=== PATIENT | female | born 1995 | race Caucasian/White ===

== ENCOUNTER 2017-01-12 11:26 | Emergency (ER) | payer BC, OTHER ==
[2017-01-12 11:36] VITALS: BP 117/80; PULSE 75; RESP 20; TEMP 97
--- NOTE | 2017-01-12 12:08 | ED ---
ENT HPI - General Chief complaint: ENT Stated complaint: Bleeding ear Time Seen by Provider: 01/12/17 11:58 Source: patient, RN notes reviewed Mode of arrival: ambulatory Limitations: no limitations - History of Present Illness Initial comments: 21-year-old female presents to the emergency department with a chief complaint of bleeding from the left ear. Patient states she is to [employer] last night she scratched the inside of the ear canal. Patient states that she did not go that hard she denying. She is fine. Patient states now has bleeding from the ear. Patient states that she has no other symptoms is no pain no fever chills no cough cold runny nose. Patient denies any recent fever, chills, shortness of breath, chest pain, back pain, abdominal pain, nausea vomiting, numbness or tingling, dysuria or hematuria, constipation or diarrhea, headaches or visual changes, or any other current symptoms. - Related Data Previous Rx's Medication Instructions Recorded Fluticasone Nasal [place] [Flonase 1 spray EA NOSTRIL DAILY PRN #1 08/20/16 Nasal Watson] bottle Levofloxacin [Levaquin] 500 mg PO DAILY #7 tab 08/20/16 predniSONE 50 mg PO DAILY #5 tab 08/20/16 Allergies Allergy/AdvReac Type Severity Reaction Status Date / Time erythromycin base Allergy Unknown Verified 01/12/17 11:36 Penicillins Allergy Unknown Verified 01/12/17 11:36 Review of Systems ROS Statement: Those systems with pertinent positive or pertinent negative responses have been documented in the HPI. ROS Other: All systems not noted in ROS Statement are negative. Past Medical History Past Medical History: No Reported History Additional Past Medical History / Comment(s): anorexia History of Any Multi-Drug Resistant Organisms: None Reported Past Surgical History: No Surgical Hx Reported Additional Past Surgical History / Comment(s): anxiety, bipolar, heart arrythmia , anorexia Past Psychological History: Anxiety, Bipolar Smoking Status: Never smoker Past Alcohol Use History: Rare Past Drug Use History: None Reported General Exam Limitations: no limitations General appearance: alert, in no apparent distress Head exam: Present: atraumatic, normocephalic, normal inspection ENT exam: Present: mucous membranes moist, TM's normal bilaterally. Absent: normal external ear exam (Patient does appear to have a small abrasion to the left ear canal.) Neck exam: Present: normal inspection. Absent: tenderness, meningismus, lymphadenopathy Respiratory exam: Present: normal lung sounds bilaterally. Absent: respiratory distress, wheezes, rales, rhonchi, stridor Cardiovascular Exam: Present: regular rate, normal rhythm, normal heart sounds. Absent: systolic murmur, diastolic murmur, rubs, gallop, clicks Back exam: Present: normal inspection Neurological exam: Present: alert, oriented X3, CN II-XII intact. Absent: motor sensory deficit Psychiatric exam: Present: normal affect, normal mood Skin exam: Present: warm, dry, intact, normal color. Absent: rash Course Vital Signs 01/12/17 11:34 Temperature 97 F L Pulse Rate 75 Respiratory 20 Rate Blood Pressure 117/80 O2 Sat by Pulse 98 Oximetry Medical Decision Making - Medical Decision Making 21-year-old female presents for left wrist to be an ear canal abrasion. At this time we discussed care of this. We discussed no Q-tips in the ear. We discussed return parameters and follow-up. Discussed outpatient family's questions fairly clearly understood and agreed with plan all cushions have answered. They will be discharged. Disposition Clinical Impression: Abrasion of left ear canal Disposition: HOME SELF-CARE Condition: Stable Instructions: Abrasion (ED) Additional Instructions: Please use medication as discussed. Please follow up with family doctor if symptoms have not improved over the next two days. Please return to the emergency room if your symptoms increase or worsen or for any other concerns. Referrals: Tadeo Michael MD [STAFF PHYSICIAN] - 1-2 days Time of Disposition: 12:08
== END 2017-01-12 12:21 | disposition home or self-care (01) ==
LOC: EC 11:26
DX: S00.412A Abrasion of left ear, initial encounter (principal); X58.XXXA Exposure to other specified factors, initial encounter; Z79.899 Other long term (current) drug therapy; Z79.52 Long term (current) use of systemic steroids; Z88.0 Allergy status to penicillin; Z88.1 Allergy status to other antibiotic agents
CPT/HCPCS: 99282

== ENCOUNTER 2017-04-27 19:18 | Emergency (ER) | payer BC ==
[2017-04-27 19:45] VITALS: BP 140/77; PULSE 77; RESP 16; TEMP 98.9
[2017-04-27 20:32] LABS: Basophils % (A) 0 %; CH 32.2; CHCM 34.9; Eosinophils # (A) 0.1 k/uL (0-0.7); Eosinophils % (A) 2 %; HCT 38.7 % (34.0-46.0); HDW 2.33; HGB 13.1 gm/dL (11.4-16.0); Luc # (Auto) 0.14; Luc % (Auto) 2; Lymphocytes % (A) 24 %; MCH 31.4 pg (25.0-35.0); MCHC 33.8 g/dL (31.0-37.0); MCV 92.8 fL (80.0-100.0); Mean Platelet Volume 7.2; Monocytes # (A) 0.3 k/uL (0-1.0); Monocytes % (A) 4 %; Neutrophils # (A) 5.9 k/uL (1.3-7.7); Neutrophils % (A) 69 %; RBC 4.16 m/uL (3.80-5.40); RDW 12.7 % (11.5-15.5); WBC 8.5 k/uL (3.8-10.6); WBC (Perox) 8.93
[2017-04-27 20:34] LABS: Amorphous Sediment,Urine Rare /hpf; Appearance,Urine Clear (Clear); Bacteria,Urine Rare /hpf; Bilirubin,Urine Negative (Negative); Glucose,Urine (UA) Negative (Negative); Ketones,Urine Trace (Negative); Leukocyte Esterase,Urine Negative (Negative); Mucus,Urine Rare /hpf; Nitrite,Urine Negative (Negative); Particle Count 2872; Protein,Urine Negative (Negative); RBC,Urine 1 /hpf (0-5); Specific Gravity,Urine 1.015 (1.001-1.035); Squamous Epithelial Cell,Urine 1 /hpf (0-4); UA Billing (MACRO vs. MICRO) MICRO; Urobilinogen,Urine <2.0 mg/dL (<2.0); WBC,Urine 5 /hpf (0-5)
--- NOTE | 2017-04-27 20:52 | US ---
EXAMINATION TYPE: US OB <=14 wks transvag DATE OF EXAM: 04/27/2017 COMPARISON: NONE CLINICAL HISTORY: Cramping, spotting. Irregular cycles EXAM PERFORMED: Transvaginal (TV) and Transabdominal (TA) EXAM MEASUREMENTS: GESTATIONAL AGE / DATING Physician Established: Not established Dates by LMP: ( 5 weeks/4 days) EDC: 12/24/2017 Dates by First Scan: No previous Dates by Current Scan for: No IUP visualized MATERNAL ANATOMY Uterus: 6.5 x 4.0 x 4.6 cm Right Ovary: 3.8 x 2.0 x 1.8 cm Left Ovary: 2.3 x 1.4 x 1.4 cm Post CDS / Adnexa: wnl Presence of free fluid: No Presence of corpus luteal cyst: Yes, right ovary measuring 1.6 x 1.7 x 1.4 cm Presence of subchorionic bleed: No GESTATION / SURVEY IUP: No IUP seen at this time Date of LMP: 03/19/2017 Beta HcG (if available): Not available at time of exam No IUP visualized on this exam IMPRESSION: The uterus is empty. There is an irregular thick-walled cystic area on the right ovary. This is proba mathew ovarian cyst and not a gestational sac. The possibility of early ectopic cannot be enti rely excluded.
--- NOTE | 2017-04-27 21:19 | ED ---
Female Urogenital HPI - General Chief complaint: Vaginal Bleeding Stated complaint: vag bleeding/early Time Seen by Provider: 04/27/17 19:47 Source: patient, RN notes reviewed, old records reviewed Mode of arrival: ambulatory Limitations: no limitations - History of Present Illness Initial comments: This is a 21-year-old female chief complaint of vaginal spotting for approximately one day. Patient reports that she found she was last week. She's been started on vitamins. She does not know exactly L far along she is. Patient states that this is her first . She does not have an PET FEEDER. Patient reports that she has some lower pelvic cramping as well. denies any fever or chills, chest pain, shortness of breath, nausea, vomiting or any other symptoms. She denies any dysuria. She denies any risk resection transmitted infection. - Related Data Home Medications Medication Instructions Recorded Confirmed Pih-Setp-Skwng Acid 1 cap PO DAILY 04/27/17 04/27/17 [-U Capsule (formulary)] Allergies Allergy/AdvReac Type Severity Reaction Status Date / Time erythromycin base AdvReac Nausea & Verified 04/27/17 20:56 Vomiting Penicillins AdvReac Nausea & Verified 04/27/17 20:56 Vomiting Review of Systems ROS Statement: Those systems with pertinent positive or pertinent negative responses have been documented in the HPI. ROS Other: All systems not noted in ROS Statement are negative. Past Medical History Past Medical History: No Reported History Additional Past Medical History / Comment(s): heart murmur, anxiety, bipolar, anorexia History of Any Multi-Drug Resistant Organisms: None Reported Past Surgical History: No Surgical Hx Reported Additional Past Surgical History / Comment(s): anxiety, bipolar, heart arrythmia , anorexia Past Psychological History: Anxiety, Bipolar, Depression Smoking Status: Never smoker Past Alcohol Use History: None Reported Past Drug Use History: None Reported General Exam - General Exam Comments Initial Comments: Well-appearing 21-year-old female. No acute distress. Limitations: no limitations General appearance: alert, in no apparent distress Head exam: Present: atraumatic, normocephalic, normal inspection Eye exam: Present: normal appearance, PERRL, EOMI. Absent: scleral icterus, conjunctival injection, periorbital swelling ENT exam: Present: normal exam, mucous membranes moist Neck exam: Present: normal inspection. Absent: tenderness, meningismus, lymphadenopathy Respiratory exam: Present: normal lung sounds bilaterally. Absent: respiratory distress, wheezes, rales, rhonchi, stridor Cardiovascular Exam: Present: regular rate, normal rhythm, normal heart sounds. Absent: systolic murmur, diastolic murmur, rubs, gallop, clicks GI/Abdominal exam: Present: soft, normal bowel sounds. Absent: distended, tenderness, guarding, rebound, rigid External exam: Present: normal external exam. Absent: erythema, ecchymosis Speculum exam: Present: normal speculum exam, vaginal discharge, vaginal bleeding (Skin vaginal bleeding. Cervical os appears to be closed. No evidence of clotting.). Absent: cervical discharge By manual exam: Present: normal by manual exam. Absent: cervical motion tenderness, adnexal tenderness Extremities exam: Present: normal inspection, full ROM, normal capillary refill. Absent: tenderness, pedal edema, joint swelling, calf tenderness Back exam: Present: normal inspection Neurological exam: Present: alert Psychiatric exam: Present: normal affect, normal mood Skin exam: Present: warm, dry, intact, normal color. Absent: rash Course Vital Signs 04/27/17 19:42 Temperature 98.9 F Pulse Rate 77 Respiratory 16 Rate Blood Pressure 140/77 O2 Sat by Pulse 100 Oximetry Medical Decision Making - Medical Decision Making This is a 21-year-old female chief complaint of vaginal spotting for approximately one day. Patient reports that she found she was last week. She's been started on vitamins. She does not know exactly L far along she is. Patient states that this is her first . She does not have an PET FEEDER. Patient reports that she has some lower pelvic cramping as well. Patient's blood tests is O+. Serum hCG is 234. Patient ultrasound shows no evidence of IUP at this time. Patient had an x-ray are reviewed and negative for any abnormalities. Patient speculum exam shows minor bleeding, no clots. Some vaginal discharge. Cultures were obtained. Patient will be discharged with advice to repeat the blood work in approximately 2 days. Discussed that she needs follow-up with PET FEEDER. Patient agrees to treatment plan and will comply. Return parameters were discussed. - Lab Data Result diagrams: 04/27/17 20:22 Lab Results 04/27/17 04/27/17 04/27/17 Range/Units 20:22 20:22 20:22 WBC 8.5 (3.8-10.6) k/uL RBC 4.16 (3.80-5.40) m/uL Hgb 13.1 (11.4-16.0) gm/dL Hct 38.7 (34.0-46.0) % MCV 92.8 (80.0-100.0) fL MCH 31.4 (25.0-35.0) pg MCHC 33.8 (31.0-37.0) g/dL RDW 12.7 (11.5-15.5) % Plt Count 252 (150-450) k/uL Neutrophils % 69 % Lymphocytes % 24 % Monocytes % 4 % Eosinophils % 2 % Basophils % 0 % Neutrophils # 5.9 (1.3-7.7) k/uL Lymphocytes # 2.0 (1.0-4.8) k/uL Monocytes # 0.3 (0-1.0) k/uL Eosinophils # 0.1 (0-0.7) k/uL Basophils # 0.0 (0-0.2) k/uL HCG, Quant 234.9 mIU/mL Urine Color Urine Appearance (Clear) Urine pH (5.0-8.0) Ur Specific [place] (1.001-1.035) Urine Protein (Negative) Urine Glucose (UA) (Negative) Urine Ketones (Negative) Urine Blood (Negative) Urine Nitrite (Negative) Urine Bilirubin (Negative) Urine Urobilinogen (<2.0) mg/dL Ur Leukocyte Esterase (Negative) Urine RBC (0-5) /hpf Urine WBC (0-5) /hpf Ur Squamous Epith Cells (0-4) /hpf Amorphous Sediment (None) /hpf Urine Bacteria (None) /hpf Urine Mucus (None) /hpf Trichomonas Ag (Rapid) (Negative) Blood Type O Positive Blood Type Recheck No 04/27/17 04/27/17 Range/Units 20:22 21:50 WBC (3.8-10.6) k/uL RBC (3.80-5.40) m/uL Hgb (11.4-16.0) gm/dL Hct (34.0-46.0) % MCV (80.0-100.0) fL MCH (25.0-35.0) pg MCHC (31.0-37.0) g/dL RDW (11.5-15.5) % Plt Count (150-450) k/uL Neutrophils % % Lymphocytes % % Monocytes % % Eosinophils % % Basophils % % Neutrophils # (1.3-7.7) k/uL Lymphocytes # (1.0-4.8) k/uL Monocytes # (0-1.0) k/uL Eosinophils # (0-0.7) k/uL Basophils # (0-0.2) k/uL HCG, Quant mIU/mL Urine Color Light Yellow Urine Appearance Clear (Clear) Urine pH 6.0 (5.0-8.0) Ur Specific [place] 1.015 (1.001-1.035) Urine Protein Negative (Negative) Urine Glucose (UA) Negative (Negative) Urine Ketones Trace H (Negative) Urine Blood Small H (Negative) Urine Nitrite Negative (Negative) Urine Bilirubin Negative (Negative) Urine Urobilinogen <2.0 (<2.0) mg/dL Ur Leukocyte Esterase Negative (Negative) Urine RBC 1 (0-5) /hpf Urine WBC 5 (0-5) /hpf Ur Squamous Epith Cells 1 (0-4) /hpf Amorphous Sediment Rare H (None) /hpf Urine Bacteria Rare H (None) /hpf Urine Mucus Rare H (None) /hpf Trichomonas Ag (Rapid) Negative (Negative) Blood Type Blood Type Recheck Disposition Clinical Impression: Threatened miscarriage in early Disposition: HOME SELF-CARE Condition: Good Instructions: Threatened Miscarriage (ED) Additional Instructions: Patient advised to rest, take Tylenol for pain. Repeat your blood work in 2 days. Follow-up with a mold chipper. Return if there are any alarming signs or symptoms occur. Referrals: None,Stated [Primary Care Provider] - 1-2 days Rico Branch MD [STAFF PHYSICIAN] - 1-2 days Time of Disposition: 21:42
[2017-04-29 12:27] LABS: Chlamydia/GC Source Vaginal
== END 2017-04-27 21:56 | disposition home or self-care (01) ==
LOC: EC 19:18
DX: O20.0 Threatened abortion (principal); Z88.0 Allergy status to penicillin; Z88.1 Allergy status to other antibiotic agents
CPT/HCPCS: 36415; 76801; 76817; 81001; 84702; 85025; 86900; 86901; 87070; 87205; 87491; 87591; 87808; 99284

== ENCOUNTER → 2017-04-29 | Outpatient (CLI) | payer BC | LOC: LABWHC1 07:48 | PROVIDERS: ATTEND Physician Assistant Medical | DX: O20.0 Threatened abortion (principal) | CPT/HCPCS: 36415; 84702 ==

== ENCOUNTER 2017-05-06 22:32 | Emergency (ER) | payer BC, OTHER ==
[2017-05-06 22:47] VITALS: TEMP 99
[2017-05-06] MEDS ORDERED: METOCLOPRAMIDE 5 MG/ML 2 ML VIAL IVP STA (23:31)
[2017-05-06] MEDS ORDERED: SODIUM CHLORIDE 0.9% 1,000 ML IV ONE (23:31)
--- NOTE | 2017-05-06 23:34 | ED ---
General Adult HPI - General Chief complaint: Back Pain/Injury Stated complaint: Migraine/Back Pain Time Seen by Provider: 05/06/17 23:21 Source: patient, RN notes reviewed Mode of arrival: ambulatory Limitations: no limitations - History of Present Illness Initial comments: Patient is a 22-year-old female since emergency room for evaluation of migraine headache. Patient states she has a history of migraines. Patient states been taking Tylenol with no relief of headache. Patient states that is going on for the past 4 hours. Patient is an 8 out of 10 headache. Patient states this feels like her normal migraines. Patient also states she is about 6 weeks . Patient states she was here about 10 days ago for vaginal bleeding. Patient states she is no longer bleeding. Patient states been developing bilateral left lower quadrant and right lower quadrant abdominal cramping. Patient states this was worrying her. Patient is . She also states been nauseous all day but denies any vomiting. Patient denies dizziness. Patient denies chest pain or shortness of breath. Patient denies pain or burning during urination, trouble urinating or blood in urine. Patient states she hasn' t followed up with [employer] yet. - Related Data Home Medications Medication Instructions Recorded Confirmed Fum-Tafw-Nfvnt Acid 1 cap PO DAILY 04/27/17 05/06/17 [-U Capsule (formulary)] Allergies Allergy/AdvReac Type Severity Reaction Status Date / Time erythromycin base AdvReac Nausea & Verified 05/06/17 23:36 Vomiting Penicillins AdvReac Nausea & Verified 05/06/17 23:36 Vomiting Review of Systems ROS Statement: Those systems with pertinent positive or pertinent negative responses have been documented in the HPI. ROS Other: All systems not noted in ROS Statement are negative. Past Medical History Past Medical History: No Reported History Additional Past Medical History / Comment(s): heart murmur, anxiety, bipolar, anorexia History of Any Multi-Drug Resistant Organisms: None Reported Past Surgical History: No Surgical Hx Reported Additional Past Surgical History / Comment(s): anxiety, bipolar, heart arrythmia , anorexia Past Psychological History: Anxiety, Bipolar, Depression Smoking Status: Never smoker Past Alcohol Use History: None Reported Past Drug Use History: None Reported General Exam - General Exam Comments Initial Comments: sitting in exam room, no acute distress. Limitations: no limitations General appearance: alert, in no apparent distress Head exam: Present: atraumatic, normocephalic, normal inspection Eye exam: Present: normal appearance ENT exam: Present: normal exam, mucous membranes moist, TM's normal bilaterally Neck exam: Present: normal inspection Respiratory exam: Present: normal lung sounds bilaterally. Absent: respiratory distress Cardiovascular Exam: Present: regular rate, normal rhythm, normal heart sounds GI/Abdominal exam: Present: soft, normal bowel sounds. Absent: distended, tenderness, guarding, rebound, rigid Extremities exam: Present: normal inspection Back exam: Present: normal inspection Neurological exam: Present: alert, oriented X3, CN II-XII intact, normal gait Psychiatric exam: Present: normal affect, normal mood Skin exam: Present: warm, dry, intact, normal color. Absent: rash Course Vital Signs 05/06/17 05/07/17 22:42 01:36 Temperature 99 F Pulse Rate 97 74 Respiratory 16 18 Rate Blood Pressure 133/67 110/58 O2 Sat by Pulse 100 98 Oximetry Medical Decision Making - Medical Decision Making Patient is a 22-year-old female presents to the emergency room for evaluation of migraine and lower abdominal pain. Patient is about 6 weeks . Serum beta-hCG is still increasing. OB ultrasound: Probable early intrauterine gestational sac with visible yolk sac but no pole at this time. Gestational sac out of range for gestational age estimation. Patient states she is feeling 100% better after fluids and Reglan. Patient would like to be discharged home. Return parameters discussed. Case discussed with Dr. Poole. - Lab Data Result diagrams: 05/06/17 23:41 05/06/17 23:41 Lab Results 05/06/17 05/06/17 05/06/17 Range/Units 23:30 23:41 23:41 WBC 9.4 (3.8-10.6) k/uL RBC 4.19 (3.80-5.40) m/uL Hgb 13.1 (11.4-16.0) gm/dL Hct 38.3 (34.0-46.0) % MCV 91.3 (80.0-100.0) fL MCH 31.3 (25.0-35.0) pg MCHC 34.2 (31.0-37.0) g/dL RDW 12.8 (11.5-15.5) % Plt Count 261 (150-450) k/uL Neutrophils % 65 % Lymphocytes % 27 % Monocytes % 5 % Eosinophils % 2 % Basophils % 0 % Neutrophils # 6.0 (1.3-7.7) k/uL Lymphocytes # 2.5 (1.0-4.8) k/uL Monocytes # 0.4 (0-1.0) k/uL Eosinophils # 0.2 (0-0.7) k/uL Basophils # 0.0 (0-0.2) k/uL Sodium 141 (137-145) mmol/L Potassium 3.7 (3.5-5.1) mmol/L Chloride 105 (98-107) mmol/L Carbon Dioxide 24 (22-30) mmol/L Anion Gap 12 mmol/L BUN 14 (7-17) mg/dL Creatinine 0.80 (0.52-1.04) mg/dL Est GFR (MDRD) Af Amer >60 (>60 ml/min/1.73 sqM) Est GFR (MDRD) Non-Af >60 (>60 ml/min/1.73 sqM) Glucose 88 (74-99) mg/dL Calcium 9.6 (8.4-10.2) mg/dL Total Bilirubin 0.6 (0.2-1.3) mg/dL AST 21 (14-36) U/L ALT 36 (9-52) U/L Alkaline Phosphatase 62 (38-126) U/L Total Protein 7.0 (6.3-8.2) g/dL Albumin 4.3 (3.5-5.0) g/dL HCG, Quant 7685.3 mIU/mL Urine Color Yellow Urine Appearance Cloudy H (Clear) Urine pH 7.0 (5.0-8.0) Ur Specific [place] 1.016 (1.001-1.035) Urine Protein Negative (Negative) Urine Glucose (UA) Negative (Negative) Urine Ketones Negative (Negative) Urine Blood Negative (Negative) Urine Nitrite Negative (Negative) Urine Bilirubin Negative (Negative) Urine Urobilinogen <2.0 (<2.0) mg/dL Ur Leukocyte Esterase Negative (Negative) Urine RBC 2 (0-5) /hpf Urine WBC 4 (0-5) /hpf Ur Squamous Epith Cells 1 (0-4) /hpf Amorphous Sediment Occasional H (None) /hpf Urine Mucus Rare H (None) /hpf - Radiology Data Radiology results: report reviewed, image reviewed Disposition Clinical Impression: Headache, Abdominal pain affecting Disposition: HOME SELF-CARE Condition: Good Instructions: Acute Headache (ED) Additional Instructions: Drink plenty of water. Continue taking Tylenol as needed for pain. Please follow up with primary care provider in 1-2 days. If any new symptom arises or symptoms worsen, return to ER as soon as possible. Referrals: None,Stated [Primary Care Provider] - 1-2 days Time of Disposition: 01:20
[2017-05-06 23:58] LABS: Basophils % (A) 0 %; CH 32.1; CHCM 35.4; Eosinophils # (A) 0.2 k/uL (0-0.7); Eosinophils % (A) 2 %; HCT 38.3 % (34.0-46.0); HDW 2.39; HGB 13.1 gm/dL (11.4-16.0); Luc # (Auto) 0.13; Luc % (Auto) 1; Lymphocytes # (A) 2.5 k/uL (1.0-4.8); Lymphocytes % (A) 27 %; MCH 31.3 pg (25.0-35.0); MCHC 34.2 g/dL (31.0-37.0); MCV 91.3 fL (80.0-100.0); Mean Platelet Volume 7.3; Monocytes # (A) 0.4 k/uL (0-1.0); Monocytes % (A) 5 %; Neutrophils % (A) 65 %; RBC 4.19 m/uL (3.80-5.40); RDW 12.8 % (11.5-15.5); WBC 9.4 k/uL (3.8-10.6); WBC (Perox) 9.55
[2017-05-07 00:04] LABS: Amorphous Sediment,Urine Occasional /hpf; Appearance,Urine Cloudy (Clear); Bilirubin,Urine Negative (Negative); Glucose,Urine (UA) Negative (Negative); Ketones,Urine Negative (Negative); Leukocyte Esterase,Urine Negative (Negative); Mucus,Urine Rare /hpf; Nitrite,Urine Negative (Negative); Particle Count 13057; Protein,Urine Negative (Negative); RBC,Urine 2 /hpf (0-5); Specific Gravity,Urine 1.016 (1.001-1.035); Squamous Epithelial Cell,Urine 1 /hpf (0-4); UA Billing (MACRO vs. MICRO) MICRO; Urobilinogen,Urine <2.0 mg/dL (<2.0); WBC,Urine 4 /hpf (0-5)
[2017-05-07 00:24] LABS: ALT 36 U/L (9-52); AST 21 U/L (14-36); Alkaline Phosphatase 62 U/L (38-126); Anion Gap 12 mmol/L; Blood Urea Nitrogen 14 mg/dL (7-17); Calcium 9.6 mg/dL (8.4-10.2); Carbon Dioxide 24 mmol/L (22-30); Chloride 105 mmol/L (98-107); Glucose 88 mg/dL (74-99); Non-African American GFR(MDRD) >60 (>60 ml/min/1.73 sqM); Potassium 3.7 mmol/L (3.5-5.1); Sodium 141 mmol/L (137-145); Total Bilirubin 0.6 mg/dL (0.2-1.3)
[2017-05-07 00:40] LABS: HCG,Quantitative Serum 7685.3 mIU/mL
--- NOTE | 2017-05-07 01:14 | US ---
Ultrasound First Trimester INDICATION: 22-year-old woman, LMP 03/20/17, presenting with pain. COMPARISON: Pelvic ultrasound 04/27/17 TECHNIQUE: Real-time sonographic evaluation of the female pelvis obtained using grayscale and color flow using transabdominal and endovaginal technique. FINDINGS: Uterus: 7.3 x 4.8 x 5.9 cm Right Ovary: 3.9 x 2.1 x 2.0 cm with 16mm corpus luteum cyst. Left Ovary: 2.7 x 1.9 x 1.6 cm No free fluid or abnormal adnexal mass. Presence of free fluid: No There is an intrauterine gestational sac measuring 8.4 mm, out of range for estimation of gestational age. A yolk sac is seen measuring 2 mm. No pole is visualized and no cardiac activity is detectable at this time. Placental location is not yet distinguishable. IMPRESSION: Probable early intrauterine gestational sac with visible yolk sac but no pole at this time. Gestational sac is out of range for gestational age estimation. Correlation with serial quantitative hCG and short interval follow-up ultrasound is recommended.
[2017-05-07 01:38] VITALS: BP 110/58; PULSE 74; RESP 18
== END 2017-05-07 01:38 | disposition home or self-care (01) ==
LOC: EC 22:32
DX: O99.89 Other specified diseases and conditions complicating pregnancy, childbirth and the puerperium (principal); R10.30 Lower abdominal pain, unspecified; R51 Headache; M54.9 Dorsalgia, unspecified; Z3A.01 Less than 8 weeks gestation of pregnancy; Z79.899 Other long term (current) drug therapy; Z88.0 Allergy status to penicillin; Z88.1 Allergy status to other antibiotic agents; Z86.69 Personal history of other diseases of the nervous system and sense organs
CPT/HCPCS: 99283; 96374; 96361 ×2; 36415; 80053; 85025; 81001; 84702; 76801; 76817; J2765

== ENCOUNTER 2017-06-14 23:40 | Emergency (ER) | payer OTHER ==
[2017-06-14 23:48] VITALS: BP 130/74; PULSE 76; RESP 18; TEMP 97.7
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
== END 2017-06-15 00:15 | disposition home or self-care (01) ==
LOC: EC 23:40
DX: T20.40XA Corrosion of unspecified degree of head, face, and neck, unspecified site, initial encounter (principal); T65.91XA Toxic effect of unspecified substance, accidental (unintentional), initial encounter; Z88.0 Allergy status to penicillin; Z88.1 Allergy status to other antibiotic agents
CPT/HCPCS: 99283

== ENCOUNTER 2017-07-15 11:27 | Emergency (ER) | payer OTHER ==
[2017-07-15] MEDS ORDERED: SODIUM CHLORIDE 0.9% 1,000 ML IV STA ×2 (11:49)
[2017-07-15] MEDS ORDERED: MECLIZINE 12.5 MG TAB PO STA (11:49)
[2017-07-15] MEDS ORDERED: diphenhydrAMINE 50 MG/ML 1 ML VIAL IVP STA (11:49)
[2017-07-15] MEDS ORDERED: METOCLOPRAMIDE 5 MG/ML 2 ML VIAL IVP STA (11:49)
[2017-07-15] MEDS ORDERED: MAG HYDROX/AL HYDROX/SIMETH 30 ML, HYOSCYAMINE ELIXIR 10 ML, CIMETIDINE HCL 300 MG PO STA ×3 (12:02)
--- NOTE | 2017-07-15 12:12 | ED ---
Nausea/Vomiting/Diarrhea HPI - General Chief complaint: Nausea/Vomiting/Diarrhea Stated complaint: NAUSEA, VOMITING Time Seen by Provider: 07/15/17 11:39 Source: patient, RN notes reviewed, old records reviewed Mode of arrival: ambulatory Limitations: no limitations - History of Present Illness Initial comments: This is a 22-year-old female presenting to emergency Department chief complaint of nausea and vomiting for one day. Patient reports it started last night and into today. She states that whenever she tries eat or drink anything it comes right back up. She denies some blood in her vomit today which prompted her to come in. She is currently 15 weeks . Manage his her urgency with Dr. Green. Patient states that she's had no vaginal bleeding or any significant abdominal pain. Patient states that she's had no known fever or chills. Does have a history of sick contacts. - Related Data Home Medications Medication Instructions Recorded Confirmed Wox-Bpfw-Ycibv Acid 1 cap PO DAILY 04/27/17 07/15/17 [-U Capsule (formulary)] Metoclopramide [Reglan] 10 mg PO Q6H PRN 07/15/17 07/15/17 Previous Rx's Medication Instructions Recorded Sucralfate [Carafate] 1 gm PO BID #14 tablet 07/15/17 Allergies Allergy/AdvReac Type Severity Reaction Status Date / Time erythromycin base AdvReac Nausea & Verified 07/15/17 12:00 Vomiting Penicillins AdvReac Nausea & Verified 07/15/17 12:00 Vomiting Review of Systems ROS Statement: Those systems with pertinent positive or pertinent negative responses have been documented in the HPI. ROS Other: All systems not noted in ROS Statement are negative. Past Medical History Past Medical History: No Reported History Additional Past Medical History / Comment(s): heart murmur, anxiety, bipolar, anorexia History of Any Multi-Drug Resistant Organisms: None Reported Past Surgical History: No Surgical Hx Reported Additional Past Surgical History / Comment(s): anxiety, bipolar, heart arrythmia , anorexia Past Psychological History: Anxiety, Bipolar, Depression Smoking Status: Never smoker Past Alcohol Use History: None Reported Past Drug Use History: None Reported General Exam - General Exam Comments Initial Comments: 22-year-old female. No acute distress. Limitations: no limitations General appearance: alert, in no apparent distress Head exam: Present: atraumatic, normocephalic, normal inspection Eye exam: Present: normal appearance, PERRL, EOMI. Absent: scleral icterus, conjunctival injection, periorbital swelling ENT exam: Present: normal exam, mucous membranes moist Neck exam: Present: normal inspection. Absent: tenderness, meningismus, lymphadenopathy Respiratory exam: Present: normal lung sounds bilaterally. Absent: respiratory distress, wheezes, rales, rhonchi, stridor Cardiovascular Exam: Present: regular rate, normal rhythm, normal heart sounds. Absent: systolic murmur, diastolic murmur, rubs, gallop, clicks GI/Abdominal exam: Present: soft, normal bowel sounds. Absent: distended, tenderness, guarding, rebound, rigid Extremities exam: Present: normal inspection, full ROM, normal capillary refill. Absent: tenderness, pedal edema, joint swelling, calf tenderness Back exam: Present: normal inspection Neurological exam: Present: alert, oriented X3, CN II-XII intact Psychiatric exam: Present: normal affect, normal mood Skin exam: Present: warm, dry, intact, normal color. Absent: rash Course Vital Signs 07/15/17 07/15/17 07/15/17 11:32 12:26 13:00 Temperature 97.6 F 98.1 F 97 F L Pulse Rate 91 104 H 89 Respiratory 18 20 18 Rate Blood Pressure 117/85 114/67 118/68 O2 Sat by Pulse 99 98 100 Oximetry - Reevaluation(s) Reevaluation #1: 07/15/17 13:41 Patient was reevaluated this time is feeling much better after IV fluids per she reports she does not feel nauseated anymore. Patient was informed of her lab work looks well. Patient would like to be discharged home. Medical Decision Making - Medical Decision Making 22-year-old female 15 weeks presents emergency department with 1 day of vomiting. Patient states that she has no specific abdominal pain. She was concerned because she denies one episode of blood within her vomit. Patient states that she's had this happen once before and has had a tearing of her stomach lining. Patient labwork was reviewed negative for any acute process. Patient given IV fluids and ultrasound of the fetus performed. Fetus appears well estimated delivery date 01/01/2017 with a heart rate 160 bpm. Patient will be discharged as time with close follow-up with her DIE OUT WORKER. Discussed taking her at-home nausea medication which is Reglan. Discussed I can write the patient for Carafate for intestinal discomfort however this is category B in . Patient agrees to this. - Lab Data Result diagrams: 07/15/17 11:50 07/15/17 11:50 Lab Results 07/15/17 07/15/17 07/15/17 Range/Units 11:50 11:50 12:15 WBC 8.7 (3.8-10.6) k/uL RBC 3.91 (3.80-5.40) m/uL Hgb 12.5 (11.4-16.0) gm/dL Hct 34.7 (34.0-46.0) % MCV 88.8 (80.0-100.0) fL MCH 32.0 (25.0-35.0) pg MCHC 36.0 (31.0-37.0) g/dL RDW 12.7 (11.5-15.5) % Plt Count 231 (150-450) k/uL Neutrophils % 80 % Lymphocytes % 13 % Monocytes % 4 % Eosinophils % 2 % Basophils % 0 % Neutrophils # 6.9 (1.3-7.7) k/uL Lymphocytes # 1.2 (1.0-4.8) k/uL Monocytes # 0.3 (0-1.0) k/uL Eosinophils # 0.2 (0-0.7) k/uL Basophils # 0.0 (0-0.2) k/uL Sodium 136 L (137-145) mmol/L Potassium 4.3 (3.5-5.1) mmol/L Chloride 107 (98-107) mmol/L Carbon Dioxide 20 L (22-30) mmol/L Anion Gap 9 mmol/L BUN 8 (7-17) mg/dL Creatinine 0.52 (0.52-1.04) mg/dL Est GFR (MDRD) Af Amer >60 (>60 ml/min/1.73 sqM) Est GFR (MDRD) Non-Af >60 (>60 ml/min/1.73 sqM) Glucose 80 (74-99) mg/dL Calcium 9.4 (8.4-10.2) mg/dL Total Bilirubin 0.5 (0.2-1.3) mg/dL AST 21 (14-36) U/L ALT 44 (9-52) U/L Alkaline Phosphatase 52 (38-126) U/L Total Protein 6.9 (6.3-8.2) g/dL Albumin 4.0 (3.5-5.0) g/dL Amylase 69 (30-110) U/L Lipase 67 (23-300) U/L Urine Color Yellow Urine Appearance Clear (Clear) Urine pH 6.5 (5.0-8.0) Ur Specific [place] 1.016 (1.001-1.035) Urine Protein Negative (Negative) Urine Glucose (UA) Negative (Negative) Urine Ketones Negative (Negative) Urine Blood Negative (Negative) Urine Nitrite Negative (Negative) Urine Bilirubin Negative (Negative) Urine Urobilinogen <2.0 (<2.0) mg/dL Ur Leukocyte Esterase Negative (Negative) - Radiology Data Radiology results: report reviewed Viable 15 weeks and 5 days. Estimated delivery date of 01/01/2018. Heart rate of 1 60 bpm. Disposition Clinical Impression: Vomiting affecting Disposition: HOME SELF-CARE Condition: Good Instructions: Acute Nausea and Vomiting (ED) Additional Instructions: Patient advised to rest, increase fluids. Follow-up with your DIE OUT WORKER. Return to emergency department if any alarming signs or symptoms occur. Prescriptions: Sucralfate [Carafate] 1 gm PO BID #14 tablet Referrals: None,Stated [Primary Care Provider] - 1-2 days Time of Disposition: 13:44
[2017-07-15 12:20] LABS: ALT 44 U/L (9-52); AST 21 U/L (14-36); Alkaline Phosphatase 52 U/L (38-126); Amylase 69 U/L (30-110); Anion Gap 9 mmol/L; Blood Urea Nitrogen 8 mg/dL (7-17); Calcium 9.4 mg/dL (8.4-10.2); Carbon Dioxide 20 mmol/L (22-30); Chloride 107 mmol/L (98-107); Glucose 80 mg/dL (74-99); Non-African American GFR(MDRD) >60 (>60 ml/min/1.73 sqM); Potassium 4.3 mmol/L (3.5-5.1); Sodium 136 mmol/L (137-145); Total Bilirubin 0.5 mg/dL (0.2-1.3); Total Protein 6.9 g/dL (6.3-8.2)
[2017-07-15 12:27] LABS: Basophils % (A) 0 %; CH 31.8; Eosinophils # (A) 0.2 k/uL (0-0.7); Eosinophils % (A) 2 %; HCT 34.7 % (34.0-46.0); HDW 2.65; HGB 12.5 gm/dL (11.4-16.0); Luc # (Auto) 0.13; Luc % (Auto) 2; Lymphocytes # (A) 1.2 k/uL (1.0-4.8); Lymphocytes % (A) 13 %; MCV 88.8 fL (80.0-100.0); Mean Platelet Volume 7.3; Monocytes # (A) 0.3 k/uL (0-1.0); Monocytes % (A) 4 %; Neutrophils # (A) 6.9 k/uL (1.3-7.7); Neutrophils % (A) 80 %; RBC 3.91 m/uL (3.80-5.40); RDW 12.7 % (11.5-15.5); WBC 8.7 k/uL (3.8-10.6); WBC (Perox) 8.66
[2017-07-15 12:30] LABS: Appearance,Urine Clear (Clear); Bilirubin,Urine Negative (Negative); Glucose,Urine (UA) Negative (Negative); Ketones,Urine Negative (Negative); Leukocyte Esterase,Urine Negative (Negative); Nitrite,Urine Negative (Negative); PH, Urine 6.5 (5.0-8.0); Protein,Urine Negative (Negative); Specific Gravity,Urine 1.016 (1.001-1.035); UA Billing (MACRO vs. MICRO) CHEM; Urobilinogen,Urine <2.0 mg/dL (<2.0)
[2017-07-15 13:28] VITALS: BP 118/68; PULSE 89; RESP 18; TEMP 97
--- NOTE | 2017-07-15 13:37 | US ---
EXAMINATION TYPE: US OB >= 14 wk fetus DATE OF EXAM: 07/15/2017 COMPARISON: 05/07/2017 CLINICAL HISTORY: Pain N/V. Patient states no pain. TECHNIQUE: Transabdominal (TA) GESTATIONAL AGE / DATING Physician Established: (15 weeks/4 days) EDC: 01/02/2018 Dates by Current Scan: (15 weeks/5 days) EDC: 01/01/2018 SURVEY IUP: Single PLACENTA: Posterior PREVIA: No Previa TRACI: 10.3 cm Normal CERVICAL LENGTH (transabdominal: norm > 3.0cm): 3.7 cm BIOMETRY PRESENTATION: Breech BPD: 2.9 cm 15 weeks / 1 days HC: 11.5 cm 15 weeks / 4 days AC: 9.3 cm 15 weeks / 3 days FL: 1.9 cm 15 weeks / 5 days ESTIMATED WEIGHT IN GRAMS: 128.7 grams ESTIMATED WEIGHT IN LBS/OZS: 0 lbs. 5 oz. WEIGHT PERCENTAGE BASED ON ESTABLISHED DATES: 40.2% HC/AC: Normal FL/AC: Normal HEART RATE: 160 bpm RHYTHM: Normal IMPRESSION: Viable of 15 weeks 5 days with an EDC of 01/01/2018. Heart rate 160 bpm.
== END 2017-07-15 13:52 | disposition home or self-care (01) ==
LOC: EC 11:27
DX: O21.0 Mild hyperemesis gravidarum (principal); Z88.1 Allergy status to other antibiotic agents; Z88.0 Allergy status to penicillin; Z3A.15 15 weeks gestation of pregnancy; Z79.899 Other long term (current) drug therapy
CPT/HCPCS: 99284; 96374; 96375; 96361 ×2; 36415; 80053; 82150; 83690; 85025; 81003; 76805; J1200; J2765

== ENCOUNTER 2017-08-13 02:55 | Emergency (ER) | payer OTHER ==
[2017-08-13 03:06] VITALS: BP 117/73; PULSE 88; RESP 16; TEMP 98.2
[2017-08-13] MEDS ORDERED: SODIUM CHLORIDE 0.9% 1,000 ML IV STA (03:19)
[2017-08-13] MEDS ORDERED: ACETAMINOPHEN TAB 500 MG TAB PO STA (03:19)
--- NOTE | 2017-08-13 03:22 | ED ---
Abdominal Pain HPI - General Chief Complaint: Abdominal Pain Stated Complaint: Pelvic Pain Time Seen by Provider: 08/13/17 03:00 Source: patient, RN notes reviewed, old records reviewed Mode of arrival: ambulatory Limitations: no limitations - History of Present Illness Initial Comments: This is a 22-year-old female currently 20 weeks presents emergency Department with 6 hours of right lower quadrant pain between her abdomen and her back. Patient reports that it feels like a sharp stabbing pain with that occasionally feels like a squeezing pain. Patient states that she has had chills no fever. She reports that she was recently treated with antibiotics. One week ago. Patient states that she's had no diarrhea. Denies any dysuria or hematuria. She states that her LIVE IN HOUSEKEEPER is Dr. Green.Patient denies any recent fever, chills, shortness of breath, chest pain, back pain, nausea vomiting, numbness or tingling, dysuria or hematuria, constipation or diarrhea, headaches or visual changes, or any other current symptoms - Related Data Home Medications Medication Instructions Recorded Confirmed Ggj-Frej-Hqbex Acid 1 cap PO DAILY 04/27/17 07/15/17 [-U Capsule (formulary)] Metoclopramide [Reglan] 10 mg PO Q6H PRN 07/15/17 07/15/17 Previous Rx's Medication Instructions Recorded Sucralfate [Carafate] 1 gm PO BID #14 tablet 07/15/17 Miconazole 2% Vaginal Cream 1 applicator VAGINAL HS #7 08/13/17 [Monistat 7] cream.appl Nitrofurantoin Monohyd/M-Cryst 100 mg PO Q12HR #14 cap 08/13/17 [Macrobid] Allergies Allergy/AdvReac Type Severity Reaction Status Date / Time erythromycin base AdvReac Nausea & Verified 08/13/17 03:03 Vomiting Penicillins AdvReac Nausea & Verified 08/13/17 03:03 Vomiting Review of Systems ROS Statement: Those systems with pertinent positive or pertinent negative responses have been documented in the HPI. ROS Other: All systems not noted in ROS Statement are negative. Past Medical History Past Medical History: No Reported History Additional Past Medical History / Comment(s): heart murmur, anxiety, bipolar, anorexia History of Any Multi-Drug Resistant Organisms: None Reported Past Surgical History: No Surgical Hx Reported Additional Past Surgical History / Comment(s): anxiety, bipolar, heart arrythmia , anorexia Past Psychological History: Anxiety, Bipolar, Depression Smoking Status: Never smoker Past Alcohol Use History: None Reported Past Drug Use History: None Reported General Exam - General Exam Comments Initial Comments: Today 22-year-old female. No acute distress. Limitations: no limitations General appearance: alert, in no apparent distress Head exam: Present: atraumatic, normocephalic, normal inspection Eye exam: Present: normal appearance, PERRL, EOMI. Absent: scleral icterus, conjunctival injection, periorbital swelling ENT exam: Present: normal exam, mucous membranes moist Neck exam: Present: normal inspection. Absent: tenderness, meningismus, lymphadenopathy Respiratory exam: Present: normal lung sounds bilaterally. Absent: respiratory distress, wheezes, rales, rhonchi, stridor Cardiovascular Exam: Present: regular rate, normal rhythm, normal heart sounds. Absent: systolic murmur, diastolic murmur, rubs, gallop, clicks GI/Abdominal exam: Present: soft, tenderness (minimal RLQ tenderness), normal bowel sounds. Absent: distended, guarding, rebound, rigid External exam: Present: normal external exam Speculum exam: Present: vaginal discharge (thick white vaginal discharge consistent with candidial infection). Absent: normal speculum exam By manual exam: Present: normal by manual exam. Absent: cervical motion tenderness, adnexal tenderness Extremities exam: Present: normal inspection, full ROM, normal capillary refill. Absent: tenderness, pedal edema, joint swelling, calf tenderness Back exam: Present: normal inspection Neurological exam: Present: alert, oriented X3, CN II-XII intact Psychiatric exam: Present: normal affect, normal mood Course Vital Signs 08/13/17 03:01 Temperature 98.2 F Pulse Rate 88 Respiratory 16 Rate Blood Pressure 117/73 O2 Sat by Pulse 100 Oximetry Medical Decision Making - Medical Decision Making 22-year-old presents the emergency department with 6 hours of right lower quadrant pain. She is currently 20 weeks . Discussed that her pain is occasionally sharp and stabbing in her and occasionally feel daughter and dull any acute. Patient received IV fluids and laboratory obtained. Urinalysis also completed. Pelvic exam also done. She does have some minimal tenderness on exam to the right lower quadrant. Discussed the patient's symptoms are very short time period to show some signs of appendicitis. Discussed that her urinalysis did show some minor white blood cells and positive leukocyte esterase. Discussed with Dr. Yanez. We will treat the patient for a UTI and Started on Macrobid. Patient also does have some signs of a yeast infection , vaginal culture obtained. . I will write the patient for topical treatment for the y[place] infection. Pelvic exam was otherwise benign. Cervix is closed, with No bleeding. No cervical motion tenderness. heart tones were also auscultated and were 150 bpm. this time most likely patient's abdominal pain related to round ligament stretching. Patient understands treatment plan will comply. Return parameters were discussed. - Lab Data Result diagrams: 08/13/17 03:28 08/13/17 03:28 Lab Results 08/13/17 08/13/17 08/13/17 Range/Units 03:28 03:28 03:38 WBC 11.8 H (3.8-10.6) k/uL RBC 3.64 L (3.80-5.40) m/uL Hgb 11.7 (11.4-16.0) gm/dL Hct 34.2 (34.0-46.0) % MCV 94.0 D (80.0-100.0) fL MCH 32.3 (25.0-35.0) pg MCHC 34.3 (31.0-37.0) g/dL RDW 13.0 (11.5-15.5) % Plt Count 235 (150-450) k/uL Neutrophils % 74 % Lymphocytes % 20 % Monocytes % 3 % Eosinophils % 2 % Basophils % 0 % Neutrophils # 8.7 H (1.3-7.7) k/uL Lymphocytes # 2.3 (1.0-4.8) k/uL Monocytes # 0.3 (0-1.0) k/uL Eosinophils # 0.3 (0-0.7) k/uL Basophils # 0.0 (0-0.2) k/uL Sodium 134 L (137-145) mmol/L Potassium 3.6 (3.5-5.1) mmol/L Chloride 106 (98-107) mmol/L Carbon Dioxide 18 L (22-30) mmol/L Anion Gap 10 mmol/L BUN 8 (7-17) mg/dL Creatinine 0.40 L (0.52-1.04) mg/dL Est GFR (MDRD) Af Amer >60 (>60 ml/min/1.73 sqM) Est GFR (MDRD) Non-Af >60 (>60 ml/min/1.73 sqM) Glucose 95 (74-99) mg/dL Calcium 8.6 (8.4-10.2) mg/dL Total Bilirubin 0.3 (0.2-1.3) mg/dL AST 18 (14-36) U/L ALT 39 (9-52) U/L Alkaline Phosphatase 67 (38-126) U/L Total Protein 6.2 L (6.3-8.2) g/dL Albumin 3.4 L (3.5-5.0) g/dL Urine Color Light Yellow Urine Appearance Cloudy H (Clear) Urine pH 7.0 (5.0-8.0) Ur Specific [place] 1.010 (1.001-1.035) Urine Protein Negative (Negative) Urine Glucose (UA) Negative (Negative) Urine Ketones Negative (Negative) Urine Blood Negative (Negative) Urine Nitrite Negative (Negative) Urine Bilirubin Negative (Negative) Urine Urobilinogen <2.0 (<2.0) mg/dL Ur Leukocyte Esterase Small H (Negative) Urine RBC 1 (0-5) /hpf Urine WBC 7 H (0-5) /hpf Ur Squamous Epith Cells 8 H (0-4) /hpf Calcium Oxalate Crystal Rare H (None) /hpf Amorphous Sediment Rare H (None) /hpf Urine Bacteria Occasional H (None) /hpf Urine Mucus Rare H (None) /hpf Disposition Clinical Impression: Bacteriuria during , with abdominal pain of right lower quadrant, antepartum Disposition: HOME SELF-CARE Condition: Good Instructions: Abdominal Pain in (ED) Additional Instructions: Is advised to follow-up with her LIVE IN HOUSEKEEPER within the next 1-2 days. Patient can take Tylenol for pain. Patient should increase fluids. Take the antibiotic for the urinary tract infection as well as use the cream for a yeast infection. Return to emergency department if any alarming signs or symptoms occur. Prescriptions: Miconazole 2% Vaginal Cream [Monistat 7] 1 applicator VAGINAL HS #7 cream.appl Nitrofurantoin Monohyd/M-Cryst [Macrobid] 100 mg PO Q12HR #14 cap Referrals: None,Stated [Primary Care Provider] - 1-2 days Time of Disposition: 04:06
[2017-08-13 03:48] LABS: ALT 39 U/L (9-52); AST 18 U/L (14-36); Alkaline Phosphatase 67 U/L (38-126); Anion Gap 10 mmol/L; Blood Urea Nitrogen 8 mg/dL (7-17); Calcium 8.6 mg/dL (8.4-10.2); Carbon Dioxide 18 mmol/L (22-30); Chloride 106 mmol/L (98-107); Glucose 95 mg/dL (74-99); Non-African American GFR(MDRD) >60 (>60 ml/min/1.73 sqM); Potassium 3.6 mmol/L (3.5-5.1); Sodium 134 mmol/L (137-145); Total Bilirubin 0.3 mg/dL (0.2-1.3); Total Protein 6.2 g/dL (6.3-8.2)
[2017-08-13 03:56] LABS: Amorphous Sediment,Urine Rare /hpf; Appearance,Urine Cloudy (Clear); Bacteria,Urine Occasional /hpf; Bilirubin,Urine Negative (Negative); Calcium Oxalate Crystals,Urine Rare /hpf; Glucose,Urine (UA) Negative (Negative); Ketones,Urine Negative (Negative); Leukocyte Esterase,Urine Small (Negative); Mucus,Urine Rare /hpf; Nitrite,Urine Negative (Negative); Particle Count 4974; Protein,Urine Negative (Negative); RBC,Urine 1 /hpf (0-5); Squamous Epithelial Cell,Urine 8 /hpf (0-4); UA Billing (MACRO vs. MICRO) MICRO; Urobilinogen,Urine <2.0 mg/dL (<2.0); WBC,Urine 7 /hpf (0-5)
[2017-08-13 04:05] LABS: Basophils % (A) 0 %; CH 32.2; CHCM 34.5; Eosinophils # (A) 0.3 k/uL (0-0.7); Eosinophils % (A) 2 %; HCT 34.2 % (34.0-46.0); HDW 2.56; HGB 11.7 gm/dL (11.4-16.0); Luc # (Auto) 0.16; Luc % (Auto) 1; Lymphocytes # (A) 2.3 k/uL (1.0-4.8); Lymphocytes % (A) 20 %; MCH 32.3 pg (25.0-35.0); MCHC 34.3 g/dL (31.0-37.0); Mean Platelet Volume 7.3; Monocytes # (A) 0.3 k/uL (0-1.0); Monocytes % (A) 3 %; Neutrophils # (A) 8.7 k/uL (1.3-7.7); Neutrophils % (A) 74 %; RBC 3.64 m/uL (3.80-5.40); WBC 11.8 k/uL (3.8-10.6); WBC (Perox) 12.25
[2017-08-16 10:56] LABS: Chlamydia/GC Source Vaginal
== END 2017-08-13 04:25 | disposition home or self-care (01) ==
LOC: EC 02:55
DX: O26.892 Other specified pregnancy related conditions, second trimester (principal); R82.71 Bacteriuria; R10.31 Right lower quadrant pain; Z79.899 Other long term (current) drug therapy; Z88.0 Allergy status to penicillin; Z88.1 Allergy status to other antibiotic agents; Z3A.20 20 weeks gestation of pregnancy
CPT/HCPCS: 36415; 80053; 81001; 85025; 87070; 87086; 87205; 87491; 87591; 87808; 96360; 99284

== ENCOUNTER 2018-06-06 18:07 | Emergency (ER) | payer OTHER ==
[2018-06-06 20:34] LABS: Basophils % (A) 0 %; Eosinophils # (A) 0.2 k/uL (0-0.7); Eosinophils % (A) 2 %; HCT 39.1 % (34.0-46.0); Lymphocytes # (A) 2.1 k/uL (1.0-4.8); Lymphocytes % (A) 25 %; MCH 29.1 pg (25.0-35.0); MCHC 33.2 g/dL (31.0-37.0); MCV 87.7 fL (80.0-100.0); Monocytes # (A) 0.3 k/uL (0-1.0); Monocytes % (A) 4 %; Neutrophils # (A) 5.4 k/uL (1.3-7.7); Neutrophils % (A) 67 %; Platelet Count 281 k/uL (150-450); RBC 4.46 m/uL (3.80-5.40); RDW 13.2 % (11.5-15.5); WBC 8.1 k/uL (3.8-10.6)
[2018-06-06] MEDS ORDERED: SODIUM CHLORIDE 0.9% 1,000 ML IV STA (20:40)
[2018-06-06 20:43] LABS: Appearance,Urine Clear (Clear); Bilirubin,Urine Negative (Negative); Blood,Urine Large (Negative); Color,Urine Yellow; Glucose,Urine (UA) Negative (Negative); Ketones,Urine Negative (Negative); Leukocyte Esterase,Urine Small (Negative); Mucus,Urine Rare /hpf; Nitrite,Urine Negative (Negative); PH, Urine 7.5 (5.0-8.0); Protein,Urine Trace (Negative); RBC,Urine >182 /hpf (0-5); Specific Gravity,Urine 1.018 (1.001-1.035); Urobilinogen,Urine <2.0 mg/dL (<2.0)
[2018-06-06 20:51] LABS: ALT 29 U/L (9-52); AST 23 U/L (14-36); Albumin 4.3 g/dL (3.5-5.0); Alkaline Phosphatase 68 U/L (38-126); Anion Gap 8 mmol/L; Blood Urea Nitrogen 16 mg/dL (7-17); Carbon Dioxide 24 mmol/L (22-30); Chloride 106 mmol/L (98-107); Glucose 92 mg/dL (74-99); Potassium 4.1 mmol/L (3.5-5.1); Sodium 138 mmol/L (137-145); Total Bilirubin 0.5 mg/dL (0.2-1.3); Total Protein 7.1 g/dL (6.3-8.2)
--- NOTE | 2018-06-06 21:02 | US ---
EXAMINATION TYPE: US transvaginal DATE OF EXAM: 06/06/2018 COMPARISON: NONE CLINICAL HISTORY: Pain. IUD placement put in Wednesday having heavy bleeding and pain. TECHNIQUE: Transvaginal (TV). EXAM MEASUREMENTS: Uterus: 7.3 x 4.1 x 4.6 cm Endometrial Stripe: 1.6 cm Right Ovary: 3.14 x 2.5 x 3.5 cm Left Ovary: 2.5 x 1.9 x 3.1 cm 1. Uterus: Anteverted IUD appears in place. 2. Endometrium: Upper limits. 3. Right Ovary: Complex focus seen measuring 2.1 x 1.4 x 2.1 cm., likely functional. 4. Left Ovary: wnl Spectral, color and waveform doppler imaging shows good arterial and venous flow within the ovaries ; there is no evidence for ovarian torsion. 5. Bilateral Adnexa: wnl 6. Posterior cul-de-sac: wnl IMPRESSION: NO ACUTE PROCESS.
[2018-06-06 21:24] VITALS: RESP 16
[2018-06-06] MEDS ORDERED: ACETAMINOPHEN TAB 500 MG TAB PO STA (21:38)
--- NOTE | 2018-06-06 21:46 | ED ---
General Adult HPI <Nazario Hernandez - Last Filed: 06/06/18 22:02> - General Source: patient, RN notes reviewed Mode of arrival: ambulatory Limitations: no limitations <Luis Eduardo Joe - Last Filed: 06/07/18 04:13> - General Chief complaint: Vaginal Bleeding Stated complaint: Vaginal Bleeding Time Seen by Provider: 06/06/18 19:39 - History of Present Illness Initial comments: 23-year-old female presents to the emergency determine for a chief complaint of vaginal bleeding 3 days. Patient states she had an IUD placed 4 days ago. She states the procedure was not painful. She did not start have pain until 3 days ago. At this time patient admits to lower abdominal pain. Patient states she is bleeding through 1 pad an hour. Patient states she is beginning to feel dizzy. Patient denies any loss of consciousness. Patient did call RELIABILITY MANAGER and recommended to come to the emergency department for evaluation. Patient denies any nausea or vomiting. Patient has no other complaints at this time including shortness of breath, chest pain, abdominal pain, nausea or vomiting, headache, or visual changes. (Luis Eduardo Joe) - Related Data Home Medications Medication Instructions Recorded Confirmed No Known Home Medications 06/06/18 06/06/18 Allergies Allergy/AdvReac Type Severity Reaction Status Date / Time erythromycin base AdvReac Nausea & Verified 06/06/18 20:02 Vomiting Penicillins AdvReac Nausea & Verified 06/06/18 20:02 Vomiting Review of Systems ROS Other: All systems not noted in ROS Statement are negative. <Nazario Hernandez - Last Filed: 06/06/18 22:02> ROS Other: All systems not noted in ROS Statement are negative. <Luis Eduardo Joe - Last Filed: 06/07/18 04:13> ROS Statement: Those systems with pertinent positive or pertinent negative responses have been documented in the HPI. Past Medical History Past Medical History: No Reported History Additional Past Medical History / Comment(s): heart murmur, anxiety, bipolar, anorexia History of Any Multi-Drug Resistant Organisms: None Reported Past Surgical History: No Surgical Hx Reported Additional Past Surgical History / Comment(s): anxiety, bipolar, heart arrythmia , anorexia Past Psychological History: Anxiety, Bipolar, Depression Smoking Status: Never smoker Past Alcohol Use History: None Reported Past Drug Use History: None Reported <Luis Eduardo Joe - Last Filed: 06/07/18 04:13> General Exam Limitations: no limitations General appearance: alert, in no apparent distress Head exam: Present: atraumatic, normocephalic, normal inspection Eye exam: Present: normal appearance, PERRL, EOMI. Absent: scleral icterus, conjunctival injection, periorbital swelling ENT exam: Present: normal exam, normal oropharynx, mucous membranes moist, TM's normal bilaterally, normal external ear exam Neck exam: Present: normal inspection, full ROM. Absent: tenderness, meningismus, lymphadenopathy Respiratory exam: Present: normal lung sounds bilaterally. Absent: respiratory distress, wheezes, rales, rhonchi, stridor Cardiovascular Exam: Present: regular rate, normal rhythm, normal heart sounds. Absent: systolic murmur, diastolic murmur, rubs, gallop, clicks GI/Abdominal exam: Present: soft, tenderness (suprapubic tenderness, mild right and left lower quadrant tenderness), normal bowel sounds. Absent: distended, guarding, rebound, rigid External exam: Present: normal external exam Speculum exam: Present: vaginal bleeding (vaginal bleeding from cervix. strings from IUD visualized.) Extremities exam: Present: normal capillary refill (cap refill < 2 seconds) Neurological exam: Present: alert, oriented X3, CN II-XII intact Psychiatric exam: Present: normal affect, normal mood Skin exam: Present: warm, dry, intact, normal color. Absent: rash <Luis Eduardo Joe - Last Filed: 06/07/18 04:13> Course <Nazario Hernandez - Last Filed: 06/06/18 22:02> <Luis Eduardo Joe - Last Filed: 06/07/18 04:13> Vital Signs 06/06/18 06/06/18 06/06/18 18:45 21:24 23:01 Temperature 98.3 F 98.6 F Pulse Rate 86 67 97 Respiratory 18 16 16 Rate Blood Pressure 151/89 145/76 120/75 O2 Sat by Pulse 100 100 98 Oximetry - Reevaluation(s) Reevaluation #1: 06/06/18 22:03 Patient reevaluated by myself, Dr. Hernandez. I reviewed with him and agree with newsome findings including all diagnostic interpretation and treatment plan. Case was discussed by myself with Dr. Black who is comfortable with the patient discharge and does recommend follow-up with her RELIABILITY MANAGER tomorrow. Patient does see Dr. green under [facility] and is agreeable to follow-up. ( Nazario Hernandez) Medical Decision Making - Lab Data Result diagrams: 06/06/18 20:23 06/06/18 20:23 <Nazario Hernandez - Last Filed: 06/06/18 22:02> - Lab Data Result diagrams: 06/06/18 20:23 06/06/18 20:23 <Luis Eduardo Joe - Last Filed: 06/07/18 04:13> - Medical Decision Making 23-year-old female presents to the emergency department for a chief complaint of vaginal bleeding 3 days. Patient had an IUD placed 4 days ago. Patient is beginning to feel dizzy. Patient contacted her RELIABILITY MANAGER who recommended coming to the emergency department for evaluation. Patient states she is bleeding 1 pad an hour. Patient given a liter of fluids in the emergency department. Speculum exam reveals vaginal bleeding with IUD strings in place. CBC/CMP unremarkable. Hemoglobin 13. No evidence of infection in the urine.Ultrasound shows IUD appears in place. No evidence of ovarian torsion. Dr. Hernandez discussed the case with Dr. Black who recommends outpatient follow-up tomorrow with Dr. Green, patient's RELIABILITY MANAGER. Patient is comfortable with this and agrees to follow-up. Patient states she is feeling much better after getting fluids and is no longer feeling dizzy. Patient aware to return to the emergency Department if she has any worsening symptoms. (Luis Eduardo Joe) - Lab Data Lab Results 06/06/18 06/06/18 06/06/18 Range/Units 20:23 20:23 20:23 WBC (3.8-10.6) k/uL RBC (3.80-5.40) m/uL Hgb (11.4-16.0) gm/dL Hct (34.0-46.0) % MCV (80.0-100.0) fL MCH (25.0-35.0) pg MCHC (31.0-37.0) g/dL RDW (11.5-15.5) % Plt Count (150-450) k/uL Neutrophils % % Lymphocytes % % Monocytes % % Eosinophils % % Basophils % % Neutrophils # (1.3-7.7) k/uL Lymphocytes # (1.0-4.8) k/uL Monocytes # (0-1.0) k/uL Eosinophils # (0-0.7) k/uL Basophils # (0-0.2) k/uL Sodium 138 (137-145) mmol/L Potassium 4.1 (3.5-5.1) mmol/L Chloride 106 (98-107) mmol/L Carbon Dioxide 24 (22-30) mmol/L Anion Gap 8 mmol/L BUN 16 (7-17) mg/dL Creatinine 0.69 (0.52-1.04) mg/dL Est GFR (CKD-EPI)AfAm >90 (>60 ml/min/1.73 sqM) Est GFR (CKD-EPI)NonAf >90 (>60 ml/min/1.73 sqM) Glucose 92 (74-99) mg/dL Calcium 9.0 (8.4-10.2) mg/dL Total Bilirubin 0.5 (0.2-1.3) mg/dL AST 23 (14-36) U/L ALT 29 (9-52) U/L Alkaline Phosphatase 68 (38-126) U/L Total Protein 7.1 (6.3-8.2) g/dL Albumin 4.3 (3.5-5.0) g/dL Urine Color Yellow Urine Appearance Clear (Clear) Urine pH 7.5 (5.0-8.0) Ur Specific [place] 1.018 (1.001-1.035) Urine Protein Trace H (Negative) Urine Glucose (UA) Negative (Negative) Urine Ketones Negative (Negative) Urine Blood Large H (Negative) Urine Nitrite Negative (Negative) Urine Bilirubin Negative (Negative) Urine Urobilinogen <2.0 (<2.0) mg/dL Ur Leukocyte Esterase Small H (Negative) Urine RBC >182 H (0-5) /hpf Urine Mucus Rare H (None) /hpf Urine HCG, Qual Not Detected (Not Detectd) 06/06/18 Range/Units 20:23 WBC 8.1 (3.8-10.6) k/uL RBC 4.46 (3.80-5.40) m/uL Hgb 13.0 (11.4-16.0) gm/dL Hct 39.1 (34.0-46.0) % MCV 87.7 (80.0-100.0) fL MCH 29.1 (25.0-35.0) pg MCHC 33.2 (31.0-37.0) g/dL RDW 13.2 (11.5-15.5) % Plt Count 281 (150-450) k/uL Neutrophils % 67 % Lymphocytes % 25 % Monocytes % 4 % Eosinophils % 2 % Basophils % 0 % Neutrophils # 5.4 (1.3-7.7) k/uL Lymphocytes # 2.1 (1.0-4.8) k/uL Monocytes # 0.3 (0-1.0) k/uL Eosinophils # 0.2 (0-0.7) k/uL Basophils # 0.0 (0-0.2) k/uL Sodium (137-145) mmol/L Potassium (3.5-5.1) mmol/L Chloride (98-107) mmol/L Carbon Dioxide (22-30) mmol/L Anion Gap mmol/L BUN (7-17) mg/dL Creatinine (0.52-1.04) mg/dL Est GFR (CKD-EPI)AfAm (>60 ml/min/1.73 sqM) Est GFR (CKD-EPI)NonAf (>60 ml/min/1.73 sqM) Glucose (74-99) mg/dL Calcium (8.4-10.2) mg/dL Total Bilirubin (0.2-1.3) mg/dL AST (14-36) U/L ALT (9-52) U/L Alkaline Phosphatase (38-126) U/L Total Protein (6.3-8.2) g/dL Albumin (3.5-5.0) g/dL Urine Color Urine Appearance (Clear) Urine pH (5.0-8.0) Ur Specific [place] (1.001-1.035) Urine Protein (Negative) Urine Glucose (UA) (Negative) Urine Ketones (Negative) Urine Blood (Negative) Urine Nitrite (Negative) Urine Bilirubin (Negative) Urine Urobilinogen (<2.0) mg/dL Ur Leukocyte Esterase (Negative) Urine RBC (0-5) /hpf Urine Mucus (None) /hpf Urine HCG, Qual (Not Detectd) Disposition <Nazario Hernandez - Last Filed: 06/06/18 22:02> Is patient prescribed a controlled substance at d/c from ED?: No Time of Disposition: 22:23 <Luis Eduardo Joe - Last Filed: 06/07/18 04:13> Clinical Impression: Vaginal bleeding Disposition: HOME SELF-CARE Condition: Good Instructions: Dysfunctional Uterine Bleeding (ED) Additional Instructions: Please drink plenty of fluids. Please follow-up with RELIABILITY MANAGER tomorrow morning. Return to the emergency department if you have any worsening symptoms. Referrals: Rosenda Alcazar MD [Primary Care Provider] - 1-2 days
[2018-06-06] MEDS ORDERED: ONDANSETRON 4 MG/2 ML VIAL IVP STA (21:55)
[2018-06-06 23:03] VITALS: BP 120/75; PULSE 97; TEMP 98.6
== END 2018-06-06 23:01 | disposition home or self-care (01) ==
LOC: EC 18:07
DX: N93.9 Abnormal uterine and vaginal bleeding, unspecified (principal); R10.30 Lower abdominal pain, unspecified; R42 Dizziness and giddiness; Z97.5 Presence of (intrauterine) contraceptive device; Z88.0 Allergy status to penicillin; Z88.1 Allergy status to other antibiotic agents
CPT/HCPCS: 36415; 80053; 85025; 81001; 81025; 93975; 76830; 99284; 96374; 96361; J2405

== ENCOUNTER 2018-06-07 12:57 | Emergency (ER) | payer OTHER ==
[2018-06-07] MEDS ORDERED: SODIUM CHLORIDE 0.9% 1,000 ML IV STA (13:47)
[2018-06-07] MEDS ORDERED: ONDANSETRON 4 MG/2 ML VIAL IVP STA (13:47)
--- NOTE | 2018-06-07 13:52 | ED ---
Female Urogenital HPI - General Chief complaint: Vaginal Bleeding Stated complaint: female Time Seen by Provider: 06/07/18 13:35 Source: patient, RN notes reviewed Mode of arrival: ambulatory Limitations: no limitations - History of Present Illness Initial comments: This is a 23-year-old female who presents to the emergency department with chief complaint of vaginal bleeding. Patient states that she has been bleeding for the past 4 days. She states that this all began when she had an IUD placed by Dr. Green 5 days ago. Patient was seen here in the emergency department yesterday. CBC revealed a normal hemoglobin. A transvaginal ultrasound revealed that the IUD was in place. Patient was discharged home with recommendation to follow-up with Dr. Green. Patient states that she is unable to follow-up until tomorrow at 10:45. She states that since yesterday her lower abdominal cramping has intensified. She states that she is bleeding more heavily. She reports passing large clots. She states that yesterday she was going through 1 pad an hour. Today, she states that she is bleeding through one pad in a shorter period of time. Patient states that she contacted Dr. Green who recommended that she come to the emergency department. Patient states that she has also been feeling lightheaded and nauseous. Denies any abnormal vaginal discharge. Denies chest pain or shortness of breath, vomiting , diarrhea, dysuria or hematuria. - Related Data Home Medications Medication Instructions Recorded Confirmed Gtx-Yref-[place] Acid 1 cap PO DAILY 06/07/18 06/07/18 [-U Capsule (formulary)] Previous Rx's Medication Instructions Recorded Nitrofurantoin Monohyd/M-Cryst 100 mg PO Q12HR #10 cap 06/07/18 [Macrobid] Allergies Allergy/AdvReac Type Severity Reaction Status Date / Time erythromycin base AdvReac Nausea & Verified 06/07/18 13:43 Vomiting Penicillins AdvReac Nausea & Verified 06/07/18 13:43 Vomiting Review of Systems ROS Statement: Those systems with pertinent positive or pertinent negative responses have been documented in the HPI. ROS Other: All systems not noted in ROS Statement are negative. Past Medical History Past Medical History: No Reported History Additional Past Medical History / Comment(s): heart murmur, anxiety, bipolar, anorexia History of Any Multi-Drug Resistant Organisms: None Reported Past Surgical History: No Surgical Hx Reported Additional Past Surgical History / Comment(s): anxiety, bipolar, heart arrythmia , anorexia Past Psychological History: Anxiety, Bipolar, Depression Smoking Status: Never smoker Past Alcohol Use History: None Reported Past Drug Use History: None Reported General Exam - General Exam Comments Initial Comments: General: Awake and alert, well-developed; in no apparent distress. HEENT: Head atraumatic, normocephalic. Pupils are equal, round and reactive to light. Extraocular movements intact. Oropharynx moist without erythema or exudate. Neck: Supple. Normal ROM. Cardiovascular: Regular rate and rhythm. No murmurs, rubs or gallops. Chest symmetrical. Respiratory: Lungs clear to auscultation bilaterally. No wheezes, rales or rhonchi. Normal respiratory effort with no use of accessory muscles. Abdomen: Soft, non-tender, non-distended. No rigidity, rebound or guarding. Normal bowel sounds in all 4 quadrants. Musculoskeletal: Normal ROM, no tenderness bilateral upper and lower extremities. Skin: [place], warm and dry without rashes or lesions. Neurological: Alert and oriented x3. CN II-XII grossly intact. Speech is fluent and answers are appropriate. No focal neuro deficits. Psychiatric: Normal mood and affect. No overt signs of depression or anxiety noted. Limitations: no limitations Course Vital Signs 06/07/18 13:16 Temperature 98.2 F Pulse Rate 83 Respiratory 16 Rate Blood Pressure 127/77 O2 Sat by Pulse 98 Oximetry Medical Decision Making - Medical Decision Making This is a 23-year-old female who presents to the emergency department with chief complaint of vaginal bleeding. Patient was seen in the emergency department yesterday with the same problem. She had an IUD placed 5 days ago and has been bleeding since. She reports lower abdominal cramping and increase in bleeding today. Yesterday, CBC revealed a normal hemoglobin. Transvaginal ultrasound showed that the IUD was in correct placement. Patient states that she was unable to follow-up with Dr. Green today but does have an appointment scheduled for tomorrow morning. Patient given IV fluids while in the emergency department. She states that she is no longer feeling lightheaded. CBC revealed a stable hemoglobin at 13.0. CMP was unremarkable. UA did reveal evidence for infection with large white blood cells and leukocyte esterase. Patient will be started on Macrobid. Recommended following up tomorrow morning with Dr. Green as scheduled and to return to the emergency department with any worsening symptoms. Abdomen is soft and nontender. Patient's vital signs have been stable and she is in no acute distress. She is in agreement for discharge home. All questions answered. - Lab Data Result diagrams: 06/07/18 14:04 06/07/18 14:04 Lab Results 06/07/18 06/07/18 06/07/18 Range/Units 14:04 14:04 14:04 WBC 5.8 (3.8-10.6) k/uL RBC 4.34 (3.80-5.40) m/uL Hgb 13.0 (11.4-16.0) gm/dL Hct 38.6 (34.0-46.0) % MCV 89.0 (80.0-100.0) fL MCH 29.9 (25.0-35.0) pg MCHC 33.6 (31.0-37.0) g/dL RDW 13.4 (11.5-15.5) % Plt Count 268 (150-450) k/uL Neutrophils % 64 % Lymphocytes % 27 % Monocytes % 4 % Eosinophils % 3 % Basophils % 0 % Neutrophils # 3.7 (1.3-7.7) k/uL Lymphocytes # 1.6 (1.0-4.8) k/uL Monocytes # 0.2 (0-1.0) k/uL Eosinophils # 0.1 (0-0.7) k/uL Basophils # 0.0 (0-0.2) k/uL PT 9.7 (9.0-12.0) sec INR 1.0 (<1.2) APTT 25.1 (22.0-30.0) sec Sodium 140 (137-145) mmol/L Potassium 4.3 (3.5-5.1) mmol/L Chloride 106 (98-107) mmol/L Carbon Dioxide 27 (22-30) mmol/L Anion Gap 7 mmol/L BUN 11 (7-17) mg/dL Creatinine 0.62 (0.52-1.04) mg/dL Est GFR (CKD-EPI)AfAm >90 (>60 ml/min/1.73 sqM) Est GFR (CKD-EPI)NonAf >90 (>60 ml/min/1.73 sqM) Glucose 90 (74-99) mg/dL Calcium 9.0 (8.4-10.2) mg/dL Total Bilirubin 0.8 (0.2-1.3) mg/dL AST 23 (14-36) U/L ALT 30 (9-52) U/L Alkaline Phosphatase 61 (38-126) U/L Total Protein 7.2 (6.3-8.2) g/dL Albumin 4.4 (3.5-5.0) g/dL Urine Color Urine Appearance (Clear) Urine pH (5.0-8.0) Ur Specific [place] (1.001-1.035) Urine Protein (Negative) Urine Glucose (UA) (Negative) Urine Ketones (Negative) Urine Blood (Negative) Urine Nitrite (Negative) Urine Bilirubin (Negative) Urine Urobilinogen (<2.0) mg/dL Ur Leukocyte Esterase (Negative) Urine RBC (0-5) /hpf Urine WBC (0-5) /hpf 06/07/18 Range/Units 14:04 WBC (3.8-10.6) k/uL RBC (3.80-5.40) m/uL Hgb (11.4-16.0) gm/dL Hct (34.0-46.0) % MCV (80.0-100.0) fL MCH (25.0-35.0) pg MCHC (31.0-37.0) g/dL RDW (11.5-15.5) % Plt Count (150-450) k/uL Neutrophils % % Lymphocytes % % Monocytes % % Eosinophils % % Basophils % % Neutrophils # (1.3-7.7) k/uL Lymphocytes # (1.0-4.8) k/uL Monocytes # (0-1.0) k/uL Eosinophils # (0-0.7) k/uL Basophils # (0-0.2) k/uL PT (9.0-12.0) sec INR (<1.2) APTT (22.0-30.0) sec Sodium (137-145) mmol/L Potassium (3.5-5.1) mmol/L Chloride (98-107) mmol/L Carbon Dioxide (22-30) mmol/L Anion Gap mmol/L BUN (7-17) mg/dL Creatinine (0.52-1.04) mg/dL Est GFR (CKD-EPI)AfAm (>60 ml/min/1.73 sqM) Est GFR (CKD-EPI)NonAf (>60 ml/min/1.73 sqM) Glucose (74-99) mg/dL Calcium (8.4-10.2) mg/dL Total Bilirubin (0.2-1.3) mg/dL AST (14-36) U/L ALT (9-52) U/L Alkaline Phosphatase (38-126) U/L Total Protein (6.3-8.2) g/dL Albumin (3.5-5.0) g/dL Urine Color Red Urine Appearance Cloudy H (Clear) Urine pH 7.5 (5.0-8.0) Ur Specific [place] 1.013 (1.001-1.035) Urine Protein 1+ H (Negative) Urine Glucose (UA) Negative (Negative) Urine Ketones Negative (Negative) Urine Blood Large H (Negative) Urine Nitrite Negative (Negative) Urine Bilirubin Negative (Negative) Urine Urobilinogen <2.0 (<2.0) mg/dL Ur Leukocyte Esterase Moderate H (Negative) Urine RBC >182 H (0-5) /hpf Urine WBC 148 H (0-5) /hpf Disposition Clinical Impression: Vaginal bleeding, Urinary tract infection Disposition: HOME SELF-CARE Condition: Good Instructions: Menorrhagia (ED), Urinary Tract Infection in Women (ED) Additional Instructions: Please take medications as prescribed. Please follow up with Dr. Green tomorrow morning as scheduled. Please follow up with primary care provider within 1-2 days. Return to emergency department if symptoms should worsen or any concerns arise. Prescriptions: Nitrofurantoin Monohyd/M-Cryst [Macrobid] 100 mg PO Q12HR #10 cap Is patient prescribed a controlled substance at d/c from ED?: No Referrals: Rosenda Alcazar MD [Primary Care Provider] - 1-2 days Time of Disposition: 14:53
[2018-06-07 14:18] LABS: Basophils % (A) 0 %; Eosinophils # (A) 0.1 k/uL (0-0.7); Eosinophils % (A) 3 %; HCT 38.6 % (34.0-46.0); Lymphocytes # (A) 1.6 k/uL (1.0-4.8); Lymphocytes % (A) 27 %; MCH 29.9 pg (25.0-35.0); MCHC 33.6 g/dL (31.0-37.0); Mean Platelet Volume 6.8; Monocytes # (A) 0.2 k/uL (0-1.0); Monocytes % (A) 4 %; Neutrophils # (A) 3.7 k/uL (1.3-7.7); Neutrophils % (A) 64 %; Platelet Count 268 k/uL (150-450); RBC 4.34 m/uL (3.80-5.40); RDW 13.4 % (11.5-15.5); WBC 5.8 k/uL (3.8-10.6)
[2018-06-07 14:22] LABS: Appearance,Urine Cloudy (Clear); Bilirubin,Urine Negative (Negative); Blood,Urine Large (Negative); Color,Urine Red; Glucose,Urine (UA) Negative (Negative); Ketones,Urine Negative (Negative); Leukocyte Esterase,Urine Moderate (Negative); Nitrite,Urine Negative (Negative); PH, Urine 7.5 (5.0-8.0); Partial Thromboplastin Time 25.1 sec (22.0-30.0); Protein,Urine 1+ (Negative); Prothrombin Time 9.7 sec (9.0-12.0); RBC,Urine >182 /hpf (0-5); Specific Gravity,Urine 1.013 (1.001-1.035); Urobilinogen,Urine <2.0 mg/dL (<2.0); WBC,Urine 148 /hpf (0-5)
[2018-06-07 14:24] LABS: ALT 30 U/L (9-52); AST 23 U/L (14-36); Albumin 4.4 g/dL (3.5-5.0); Alkaline Phosphatase 61 U/L (38-126); Anion Gap 7 mmol/L; Blood Urea Nitrogen 11 mg/dL (7-17); Carbon Dioxide 27 mmol/L (22-30); Chloride 106 mmol/L (98-107); Glucose 90 mg/dL (74-99); Potassium 4.3 mmol/L (3.5-5.1); Sodium 140 mmol/L (137-145); Total Bilirubin 0.8 mg/dL (0.2-1.3); Total Protein 7.2 g/dL (6.3-8.2)
[2018-06-07 15:08] VITALS: BP 110/66; PULSE 63; RESP 18; TEMP 97.6
== END 2018-06-07 15:08 | disposition home or self-care (01) ==
LOC: EC 12:57
DX: N39.0 Urinary tract infection, site not specified (principal); N93.9 Abnormal uterine and vaginal bleeding, unspecified; R11.0 Nausea; Z88.0 Allergy status to penicillin; Z88.1 Allergy status to other antibiotic agents; Z97.5 Presence of (intrauterine) contraceptive device
CPT/HCPCS: 36415; 80053; 85025; 85610; 85730; 81001; 87086; 99284; 96374; 96361; J2405

== ENCOUNTER 2018-08-22 00:26 | Emergency (ER) | payer OTHER ==
[2018-08-22 00:33] VITALS: RESP 16
[2018-08-22] MEDS ORDERED: ACETAMINOPHEN TAB 325 MG TAB PO STA (01:34)
[2018-08-22] MEDS ORDERED: KETOROLAC 30 MG/ML 1 ML VIAL IVP STA (01:34)
[2018-08-22] MEDS ORDERED: METOCLOPRAMIDE 5 MG/ML 2 ML VIAL IVP STA (01:34)
[2018-08-22] MEDS ORDERED: SODIUM CHLORIDE 0.9% 1,000 ML IV STA (01:34)
[2018-08-22] MEDS ORDERED: diphenhydrAMINE 50 MG/ML 1 ML VIAL IVP STA (01:34)
[2018-08-22 01:49] LABS: Appearance,Urine Clear (Clear); Bilirubin,Urine Negative (Negative); Blood,Urine Negative (Negative); Color,Urine Yellow; Glucose,Urine (UA) Negative (Negative); Ketones,Urine Negative (Negative); Leukocyte Esterase,Urine Negative (Negative); Nitrite,Urine Negative (Negative); PH, Urine 7.5 (5.0-8.0); Protein,Urine Negative (Negative); Specific Gravity,Urine 1.018 (1.001-1.035); Urobilinogen,Urine <2.0 mg/dL (<2.0)
--- NOTE | 2018-08-22 01:50 | ED ---
Fever HPI - General Source: patient, RN notes reviewed Mode of arrival: ambulatory Limitations: no limitations <Donna Rodgers - Last Filed: 08/22/18 04:20> <Lulu Krause - Last Filed: 08/22/18 04:52> - General Chief Complaint: Fever Stated Complaint: FEVER,MIGRAINE Time Seen by Provider: 08/22/18 01:34 - History of Present Illness Initial Comments: This is a 23-year-old female who presents to the emergency department with chief complaint of fever and migraine. Patient states approximately 6 hours ago she developed a fever. She states that she then developed a migraine. Patient does report a history of migraines. She states she then developed left- sided flank pain. She reports difficulty emptying her bladder fully while urinating. She denies any dysuria or hematuria. Reports nausea but denies vomiting. She states that 2 hours prior to arrival she did take Motrin. She denies chest pain or shortness of breath, abdominal pain. She states that she did have one episode of diarrhea earlier yesterday. States she is fully up-to- date with vaccinations. (Donna Rodgers) - Related Data Home Medications Medication Instructions Recorded Confirmed Zev-Tefu-Vdmva Acid 1 cap PO DAILY 06/07/18 06/07/18 [-U Capsule (formulary)] Previous Rx's Medication Instructions Recorded Nitrofurantoin Monohyd/M-Cryst 100 mg PO Q12HR #10 cap 06/07/18 [Macrobid] Allergies Allergy/AdvReac Type Severity Reaction Status Date / Time erythromycin base AdvReac Nausea & Verified 08/22/18 00:33 Vomiting Penicillins AdvReac Nausea & Verified 08/22/18 00:33 Vomiting Review of Systems ROS Other: All systems not noted in ROS Statement are negative. <Donna Rodgers - Last Filed: 08/22/18 04:20> ROS Other: All systems not noted in ROS Statement are negative. <Lulu Krause - Last Filed: 08/22/18 04:52> ROS Statement: Those systems with pertinent positive or pertinent negative responses have been documented in the HPI. Past Medical History Past Medical History: No Reported History Additional Past Medical History / Comment(s): heart murmur, anxiety, bipolar, anorexia History of Any Multi-Drug Resistant Organisms: None Reported Past Surgical History: No Surgical Hx Reported Additional Past Surgical History / Comment(s): anxiety, bipolar, heart arrythmia , anorexia Past Psychological History: Anxiety, Bipolar, Depression Smoking Status: Never smoker Past Alcohol Use History: None Reported Past Drug Use History: None Reported <Ana MariaHeribertoDonna Saqib - Last Filed: 08/22/18 04:20> General Exam Limitations: no limitations <Donna Rodgers Saqib - Last Filed: 08/22/18 04:20> <Peter Krausessica P - Last Filed: 08/22/18 04:52> - General Exam Comments Initial Comments: General: Awake and alert, well-developed; in no apparent distress. Does not appear acutely ill. Lying comfortably on ED stretcher with blanket. HEENT: Head atraumatic, normocephalic. Pupils are equal, round and reactive to light. Extraocular movements intact. Oropharynx moist without erythema or exudate. Neck: Supple. Normal ROM. Cardiovascular: Regular rate and rhythm. No murmurs, rubs or gallops. Chest symmetrical. Respiratory: Lungs clear to auscultation bilaterally. No wheezes, rales or rhonchi. Normal respiratory effort with no use of accessory muscles. Abdomen: Soft, non-tender, non-distended. No rigidity, rebound or guarding. Normal bowel sounds in all 4 quadrants. Mild tenderness on palpation of the left flank. Musculoskeletal: Normal ROM, no tenderness bilateral upper and lower extremities. Ambulating normally. Skin: [place], warm and dry without rashes or lesions. Neurological: Alert and oriented x3. CN II-XII grossly intact. Speech is fluent and answers are appropriate. No focal neuro deficits. Psychiatric: Normal mood and affect. No overt signs of depression or anxiety noted. (Donna Rodgers) Vital Signs 08/22/18 08/22/18 00:32 02:39 Temperature 101.5 F H 99.5 F Pulse Rate 131 H 100 Respiratory 16 16 Rate Blood Pressure 133/76 118/59 O2 Sat by Pulse 98 100 Oximetry Medical Decision Making - Lab Data Result diagrams: 08/22/18 01:00 08/22/18 01:00 <Donna Rodgers - Last Filed: 08/22/18 04:20> - Lab Data Result diagrams: 08/22/18 01:00 08/22/18 01:00 <Lulu Krause - Last Filed: 08/22/18 04:52> - Medical Decision Making This is a 23-year-old female who presents to the emergency department with chief complaint of fever and headache. Patient reports a history of migraine headaches. She states that a few hours prior to arrival she developed a fever, left-sided flank pain and a headache. She states that she has been having difficulty fully emptying her bladder. Patient does not appear acutely ill on examination. CBC, CMP and UA revealed no significant abnormalities. Patient was given a headache cocktail as well as Tylenol while in the emergency department. Her vital signs have stabilized and she reports significant improvement in her symptoms. Patient states that she is ready to be discharged home. Patient denied any upper respiratory symptoms including cough, runny nose or sore throat. She denied any abdominal pain. Patient denies any other symptoms that would account for her fever. Return parameters were discussed. Patient will be discharged home at this time. She is in agreement and voices understanding. All questions were answered. Condition upon discharge is good. (Donna Rodgers) I was available for consultation in the emergency department. The history and physical exam were done by the midlevel provider. I was consulted for this patient's care. I reviewed the case with the midlevel provider and based on their presentation of the patient, I agree with the assessment, medical decision making and plan of care as documented. (Lulu Krause) - Lab Data Lab Results 08/22/18 08/22/18 08/22/18 Range/Units 01:00 01:00 01:00 WBC 10.1 (3.8-10.6) k/uL RBC 4.76 (3.80-5.40) m/uL Hgb 13.5 (11.4-16.0) gm/dL Hct 40.2 (34.0-46.0) % MCV 84.6 (80.0-100.0) fL MCH 28.3 (25.0-35.0) pg MCHC 33.4 (31.0-37.0) g/dL RDW 13.3 (11.5-15.5) % Plt Count 229 (150-450) k/uL Neutrophils % 93 % Lymphocytes % 3 % Monocytes % 3 % Eosinophils % 1 % Basophils % 0 % Neutrophils # 9.5 H (1.3-7.7) k/uL Lymphocytes # 0.3 L (1.0-4.8) k/uL Monocytes # 0.3 (0-1.0) k/uL Eosinophils # 0.1 (0-0.7) k/uL Basophils # 0.0 (0-0.2) k/uL Sodium 139 (137-145) mmol/L Potassium 3.9 (3.5-5.1) mmol/L Chloride 104 (98-107) mmol/L Carbon Dioxide 23 (22-30) mmol/L Anion Gap 12 mmol/L BUN 15 (7-17) mg/dL Creatinine 0.65 (0.52-1.04) mg/dL Est GFR (CKD-EPI)AfAm >90 (>60 ml/min/1.73 sqM) Est GFR (CKD-EPI)NonAf >90 (>60 ml/min/1.73 sqM) Glucose 122 H (74-99) mg/dL Calcium 9.1 (8.4-10.2) mg/dL Total Bilirubin 0.6 (0.2-1.3) mg/dL AST 38 H (14-36) U/L ALT 38 (9-52) U/L Alkaline Phosphatase 87 (38-126) U/L Total Protein 7.7 (6.3-8.2) g/dL Albumin 4.6 (3.5-5.0) g/dL Urine Color Urine Appearance (Clear) Urine pH (5.0-8.0) Ur Specific [place] (1.001-1.035) Urine Protein (Negative) Urine Glucose (UA) (Negative) Urine Ketones (Negative) Urine Blood (Negative) Urine Nitrite (Negative) Urine Bilirubin (Negative) Urine Urobilinogen (<2.0) mg/dL Ur Leukocyte Esterase (Negative) Urine HCG, Qual Not Detected (Not Detectd) 08/22/18 Range/Units 01:00 WBC (3.8-10.6) k/uL RBC (3.80-5.40) m/uL Hgb (11.4-16.0) gm/dL Hct (34.0-46.0) % MCV (80.0-100.0) fL MCH (25.0-35.0) pg MCHC (31.0-37.0) g/dL RDW (11.5-15.5) % Plt Count (150-450) k/uL Neutrophils % % Lymphocytes % % Monocytes % % Eosinophils % % Basophils % % Neutrophils # (1.3-7.7) k/uL Lymphocytes # (1.0-4.8) k/uL Monocytes # (0-1.0) k/uL Eosinophils # (0-0.7) k/uL Basophils # (0-0.2) k/uL Sodium (137-145) mmol/L Potassium (3.5-5.1) mmol/L Chloride (98-107) mmol/L Carbon Dioxide (22-30) mmol/L Anion Gap mmol/L BUN (7-17) mg/dL Creatinine (0.52-1.04) mg/dL Est GFR (CKD-EPI)AfAm (>60 ml/min/1.73 sqM) Est GFR (CKD-EPI)NonAf (>60 ml/min/1.73 sqM) Glucose (74-99) mg/dL Calcium (8.4-10.2) mg/dL Total Bilirubin (0.2-1.3) mg/dL AST (14-36) U/L ALT (9-52) U/L Alkaline Phosphatase (38-126) U/L Total Protein (6.3-8.2) g/dL Albumin (3.5-5.0) g/dL Urine Color Yellow Urine Appearance Clear (Clear) Urine pH 7.5 (5.0-8.0) Ur Specific Jackson 1.018 (1.001-1.035) Urine Protein Negative (Negative) Urine Glucose (UA) Negative (Negative) Urine Ketones Negative (Negative) Urine Blood Negative (Negative) Urine Nitrite Negative (Negative) Urine Bilirubin Negative (Negative) Urine Urobilinogen <2.0 (<2.0) mg/dL Ur Leukocyte Esterase Negative (Negative) Urine HCG, Qual (Not Detectd) Disposition Is patient prescribed a controlled substance at d/c from ED?: No Time of Disposition: 03:18 <Donna Rodgers - Last Filed: 08/22/18 04:20> <Lulu Krause - Last Filed: 08/22/18 04:52> Clinical Impression: Fever, Headache Disposition: HOME SELF-CARE Condition: Good Instructions: Fever in Adults (ED), Acute Headache (ED) Additional Instructions: Please follow up with primary care provider within 1-2 days. Return to emergency department if symptoms should worsen or any concerns arise. Referrals: Rosenda Alcazar MD [Primary Care Provider] - 1-2 days
[2018-08-22 01:52] LABS: Basophils % (A) 0 %; Eosinophils # (A) 0.1 k/uL (0-0.7); Eosinophils % (A) 1 %; HCT 40.2 % (34.0-46.0); HGB 13.5 gm/dL (11.4-16.0); Lymphocytes # (A) 0.3 k/uL (1.0-4.8); Lymphocytes % (A) 3 %; MCH 28.3 pg (25.0-35.0); MCHC 33.4 g/dL (31.0-37.0); MCV 84.6 fL (80.0-100.0); Mean Platelet Volume 6.7; Monocytes # (A) 0.3 k/uL (0-1.0); Monocytes % (A) 3 %; Neutrophils # (A) 9.5 k/uL (1.3-7.7); Neutrophils % (A) 93 %; Platelet Count 229 k/uL (150-450); RBC 4.76 m/uL (3.80-5.40); RDW 13.3 % (11.5-15.5); WBC 10.1 k/uL (3.8-10.6)
[2018-08-22 01:54] LABS: ALT 38 U/L (9-52); AST 38 U/L (14-36); Albumin 4.6 g/dL (3.5-5.0); Alkaline Phosphatase 87 U/L (38-126); Anion Gap 12 mmol/L; Blood Urea Nitrogen 15 mg/dL (7-17); Calcium 9.1 mg/dL (8.4-10.2); Carbon Dioxide 23 mmol/L (22-30); Chloride 104 mmol/L (98-107); Glucose 122 mg/dL (74-99); Potassium 3.9 mmol/L (3.5-5.1); Sodium 139 mmol/L (137-145); Total Bilirubin 0.6 mg/dL (0.2-1.3); Total Protein 7.7 g/dL (6.3-8.2)
[2018-08-22 02:41] VITALS: BP 118/59; PULSE 100; TEMP 99.5
== END 2018-08-22 03:50 | disposition home or self-care (01) ==
LOC: EC 00:26
DX: R50.9 Fever, unspecified (principal); R51 Headache; R10.9 Unspecified abdominal pain; R11.0 Nausea; Z88.1 Allergy status to other antibiotic agents; Z88.0 Allergy status to penicillin
CPT/HCPCS: 36415; 80053; 85025; 81003; 81025; 87086; 99283; 96374; 96375 ×2; 96361; J1200; J2765; J1885